=== PATIENT | female | born 1955 | race American Indian/Alaskan Native ===

== ENCOUNTER 2017-01-25 08:00 | Outpatient (CLI) | payer OTHER | END 2017-01-25 08:01 | disposition home or self-care (01) | DX: Z00.00 Encounter for general adult medical examination without abnormal findings (principal); R73.9 Hyperglycemia, unspecified ==

== ENCOUNTER 2017-02-28 14:17 | Outpatient (CLI) | payer OTHER | END 2017-02-28 14:18 | disposition home or self-care (01) | DX: Z12.31 Encounter for screening mammogram for malignant neoplasm of breast (principal) ==

== ENCOUNTER 2018-04-14 14:00 | Outpatient (CLI) | payer OTHER ==
--- NOTE | 2018-04-20 14:22 | Mammography Report ---
Procedure Date: 04/14/2018 Accession Number: [id number] / [id number] Procedure: MGN - Screening Mammo Dig Bilat CPT Code: FULL RESULT: EXAM: Screening Mammo Dig Bilat DATE: 04/14/2018 2:25 PM CLINICAL HISTORY: 62-year-old for screening TECHNIQUE: Bilateral CC and MLO views were obtained. COMPARISON: 02/28/2017, 12/12/2015, 11/27/2014, 11/14/2013, 10/25/2012, 10/25/2011, 09/09/2010 FINDINGS: The breasts demonstrate diffuse fatty replacement bilaterally. Coarse and punctate, typically benign calcifications are present. No suspicious masses, clustered microcalcifications, or regions of architectural distortion are identified. IMPRESSION: Benign findings RECOMMENDATION: Routine annual screening unless otherwise clinically indicated. BIRADS CATEGORY 2: Benign findings STANDARD QUALIFYING STATEMENTS: 1. This examination was reviewed with the aid of Computer-Aided Detection (CAD). 2. A negative or benign imaging report should not delay biopsy if clinically suspicious findings are present. Consider surgical consultation if warrented. More than 5% of cancers are not identified by imaging. 3. Dense breasts may obscure an underlying neoplasm.
== END 2018-04-14 14:01 | disposition home or self-care (01) ==
LOC: DI.N 14:00
PROVIDERS: ATTEND Physician Assistant Medical
DX: Z12.31 Encounter for screening mammogram for malignant neoplasm of breast (principal)
CPT/HCPCS: 77067

== ENCOUNTER 2018-04-19 12:40 | Outpatient (CLI) | payer OTHER | END 2018-04-19 12:41 | disposition home or self-care (01) | LOC: LAB.WCP 12:40 | PROVIDERS: ATTEND Physician Assistant Medical | DX: L02.91 Cutaneous abscess, unspecified (principal) | CPT/HCPCS: 87070; 87205 ==